=== PATIENT | female | born 1985 | race Hispanic/Latino ===

== ENCOUNTER 2018-05-10 10:43 | Emergency (ER) | payer MEDICARE ==
[~2018-05-10 10:43] MED LIST: ACET-66 PO; BUPR300T54 PO; BUSP15TA3 PO; CHLO4TAB32 PO; FLUT16H EN; HYOS-14 PO
== END 2018-05-10 11:41 | disposition home or self-care (01) ==
LOC: EDH 10:43
DX: L30.9 Dermatitis, unspecified (principal); E78.5 Hyperlipidemia, unspecified

== ENCOUNTER 2018-09-10 09:36 | Emergency (ER) | payer MEDICARE ==
[2018-09-10] MEDS ORDERED: DEXAMETHASONE SOD PHOSPHATE 10MG/ML 1ML VIAL ONE (09:52)
== END 2018-09-10 10:04 | disposition home or self-care (01) ==
LOC: EDH 09:36
DX: H69.91 Unspecified Eustachian tube disorder, right ear (principal); H92.01 Otalgia, right ear; E78.5 Hyperlipidemia, unspecified; F32.9 Major depressive disorder, single episode, unspecified; F41.9 Anxiety disorder, unspecified
CPT/HCPCS: 96372; 99283; J1100

== ENCOUNTER 2018-10-30 08:40 | Emergency (ER) | payer MEDICARE ==
[2018-10-30 09:23] LABS: APPEARANCE,URINE Clear (CLEAR); BILIRUBIN,URINE Negative (NEGATIVE); COLOR,URINE Dark Yellow (YELLOW); GLUCOSE, URINE (UA) Negative (NEGATIVE); KETONES,URINE Negative (NEGATIVE); LEUKOCYTE ESTERASE ,URINE Negative (NEGATIVE); NITRATE,URINE Positive (NEGATIVE); OCCULT BLOOD,URINE Negative (NEGATIVE); PH,URINE 6.5 (5.0-8.0); PROTEIN,URINE Negative (NEGATIVE); UROBILINOGEN,URINE 0.2 mg/dL (0.2-1.0)
[2018-10-30 09:43] LABS: HCG,QUAL RESULT NEGATIVE (NEGATIVE)
[2018-10-30 09:44] LABS: BACTERIA,URINE None Seen /HPF (None Seen); RBC,URINE None Seen /HPF (0-1); SQUAMOUS EPITHELIAL CELL,UR Rare /HPF (0-2); WBC,URINE None Seen /HPF (0-1)
== END 2018-10-30 10:19 | disposition home or self-care (01) ==
LOC: EDH 08:40
DX: N30.00 Acute cystitis without hematuria (principal); E78.5 Hyperlipidemia, unspecified; F41.9 Anxiety disorder, unspecified; F32.9 Major depressive disorder, single episode, unspecified
CPT/HCPCS: 81001; 81025

== ENCOUNTER → 2018-11-29 | Outpatient (CLI) | payer MEDICARE | END | disposition home or self-care (01) | LOC: RAH 08:34 | PROVIDERS: ATTEND Family Medicine | DX: R10.9 Unspecified abdominal pain (principal); N39.0 Urinary tract infection, site not specified; Z90.49 Acquired absence of other specified parts of digestive tract | CPT/HCPCS: 76700 ==